=== PATIENT | male | born 1930 | race Caucasian/White ===

== ENCOUNTER 2016-05-22 16:58 | Inpatient (IN) | payer BC ==
--- NOTE | ~2016-05-22 | CN ---
Consultation Report [address] [place]. [address] NAME: DANIELDEONDRE : 32 STATUS : ADM Asad PAT#: [id number] AGE: 85 ADM/REG DATE : 05/22/16 MR#: [id number] REPORT SERV DATE: 05/23/16 DICTATED BY: LYNDON JAIME DATE: 05/23/16 REPORT STATUS : Draft TRANSCRIBED BY: MODL DATE: 05/23/16 DATE OF CONSULTATION: 05/23/2016 HISTORY OF PRESENT ILLNESS: This is an 85-year-old white male admitted with pancytopenia, white count of 1000, platelet count 69,000, hemoglobin 6.2. He has been transfused. Hemoglobin is still only 6.9 after two units. History of dementia, past history of ETOH abuse, nicotine, none recently, history of hypertension, diabetes mellitus, status post appendectomy and a sigmoid resection for diverticular disease. No GI complaints, only occasional right upper quadrant discomfort. No gross bleeding. Did have positive guaiac in the ER. Did have some ataxia and a fall while he was drinking back in 2007, and had trauma. SOCIAL HISTORY: As outlined above. FAMILY HISTORY: Negative for colon cancer. PHYSICAL EXAMINATION: GENERAL: Pleasantly demented white male, alert. HEENT: Anicteric. NECK: Negative. CHEST: Clear to percussion. HEART: Regular rate and rhythm without murmur or gallop. ABDOMEN: Soft, nontender. Bowel sounds active. NEUROLOGIC: Pertinent for his dementia. ASSESSMENT AND PLAN: 1. Pancytopenia. 2. Positive guaiac stool. 3. Diabetes mellitus. 4. Hypertension. 5. Dementia. SUGGESTION: We will consult [facility] regarding the pancytopenia. Further evaluation will be based on their findings. Dr. Zuñiga is implementation coordinator this weekend. Thank you very much for consultation. EVERARDO/TORO Lyndon Jaime M.D. / [id number] Consultation Report [address] [place]. [address] NAME: DEONDRE SANCHEZ : 32 STATUS : ADM Asad PAT#: [id number] AGE: 85 ADM/REG DATE : 05/22/16 MR#: [id number] REPORT SERV DATE: 05/23/16 DICTATED BY: LYNDON JAIME DATE: 05/23/16 REPORT STATUS : Draft TRANSCRIBED BY: TORO DATE: 05/23/16 CC: London Lau M.D.
--- NOTE | ~2016-05-22 | HP ---
History And Physical [facility] [address] [place]. [address] NAME: DEONDRE SANCHEZ : 32 STATUS : ADM Asad PAT#: [id number] AGE: 85 ADM/REG DATE : 05/22/16 MR#: [id number] REPORT SERV DATE: 05/23/16 DICTATED BY: LIANET EVANS DATE: 05/23/16 REPORT STATUS : Draft TRANSCRIBED BY: MODL DATE: 05/23/16 DATE OF ADMISSION: 05/22/2016 CHIEF COMPLAINT: Abnormal labs. HISTORY OF PRESENT ILLNESS: The patient is an 85 years old male who is a resident of the [facility] with a history of Alzheimer's dementia, who had an abnormal lab study which revealed the patient with low WBC, low H and H, and low platelet. Therefore patient was sent to [facility] ER for further evaluation. The patient with Alzheimer's dementia. A family member who is stepdaughter at the bedside, but did not know much of patient history. Most information obtained from reviewing medical record that is limited in the chart and unable to obtain medical records from [facility]. Some information was obtained from reviewing the ER notes from yesterday's evaluation. ALLERGIES: THE PATIENT WITH ALLERGIES TO IODINATED CONTRAST MEDIA, PRAVASTATIN, CLOPIDOGREL FROM PLAVIX. MEDICATION: Home medications to include: 1. Aspirin which was discontinued. 2. Cymbalta 60 mg daily. 3. Lisinopril 20 mg daily. 4. Lovastatin 40 mg at bedtime. 5. Namenda XR 20 mg cap daily. 6. Metformin 500 mg tablet at breakfast and supper which was discontinued. 7. Lyrica 50 mg at bedtime. 8. Seroquel 100 mg at bedtime. 9. Exelon 9.5 mg patch daily. 10.Senokot 2 tabs p.o. at bedtime which was discontinued. PAST MEDICAL HISTORY: To include: 1. Alzheimer's dementia. 2. Shingle with right-side post herpetic neuropathy. 3. Hypertension. 4. Diabetes. 5. History of anxiety and depression. PAST SURGICAL HISTORY: Appendectomy. SOCIAL HISTORY: The patient is a resident of the [facility] for approximately over one year. The patient with history of tobacco and alcohol use. The patient has two children who are involved with his care. FAMILY HISTORY: Noncontributory. History And Physical [address] [address] NAME: DEONDRE SANCHEZ : 32 STATUS : ADM Asad PAT#: [id number] AGE: 85 ADM/REG DATE : 05/22/16 MR#: [id number] REPORT SERV DATE: 05/23/16 DICTATED BY: LIANET EVANS DATE: 05/23/16 REPORT STATUS : Draft TRANSCRIBED BY: TORO DATE: 05/23/16 REVIEW OF SYSTEMS: Patient denies any problem with his eyes. He denies any problem hearing or swallowing. The patient denies any complaint of chest pain. Patient with history of hypertension. The patient with history of smoking, but denies any cough and does not use oxygen. The patient reports some slight nausea, but none at this time. The patient complain of abdominal pain to the right abdomen that extends to his right side. The patient denies any problem urinating. The patient denies any complaint of pain in his knees or hands. The patient with no history of seizures or stroke. He has had a fall which patient had hit his head with an intracranial hemorrhage, but did not have history of surgery, but did have traumatic brain injury from it. The patient with history of shingles. Patient with history of dementia and some anxiety and depression. The patient with history of type 2 diabetes and he is on aspirin. VITAL SIGNS: The patient with 98.1 temperature, pulse 73, respiratory rate 18, blood pressure 97/54, sat O2 of 93% on room air. Weight of 62.36 kilos, BMI of 20.3. LABORATORY STUDIES: On 05/22/2016 revealed WBC of 1.0 hemoglobin is 6.3, hematocrit of 19.4, post 1 unit blood transfusion hemoglobin went up to 7.8 and hematocrit 23.4. Sodium 141, potassium 4.2, chloride 102, CO2 of 25, BUN 14, creatinine of 0.94, glucose of 114, and GFR of 75. AST 12, bilirubin 0.4, total protein 7, ALT 10, albumin 3.7, and alkaline phosphate of 93. A.m. labs on 05/23/2016 with WBC of 0.9, hemoglobin of 6.9, hematocrit 20.1, platelet of 52. Sodium of 144, potassium 3.8, chloride 109 CO2 of 26, BUN of 17, creatinine 0.85, glucose of 117, and GFR of 81. AST 8, bilirubin 0.8, total protein 6.1, and ALT 8, albumin 3.2, and alkaline phosphate of 79. Urinalysis on 05/23/2016 was negative. Chest x- ray on 05/22/2016 was negative. Abdominal pelvis scan on 05/22/2016 showed no acute GI or obstruction. There is some evidence for coronary artery disease. There is a gallstone, prostate enlarged, however, appears to be contained within the capsule, incidental spondylo lithiasis L5-S1 and arthrosclerotic changes noted. PHYSICAL EXAMINATION: GENERAL: The patient is a pleasant elderly male, in no acute distress. HEENT: Normocephalic atraumatic, PERRLA, pale sclera and conjunctiva bilaterally. NECK: No pain. BREASTS: Noted symmetrical chest expansion. CVS: Regular rate and rhythm. Normal S1, S2. No murmurs noted. LUNGS: Clear to auscultation bilaterally. No wheezing. ABDOMEN: Noted mild tenderness to palpation in the right upper quadrant, but no guarding. Positive bowel sounds x4 quadrants and soft nontender except the right upper quadrant. : Diaper in use. RECTAL: Not assessed. EXTREMITY: No edema noted in bilateral upper and lower extremity. MUSCULOSKELETAL: Noted generalized arthritic changes throughout. SKIN: Multiple old ecchymoses on bilateral upper extremities and lower extremity, dry skin. Noted old dermatomal scar on the right abdomen extending to the left flank likely this is secondary to history of shingles. NEURO: No acute deficit noted. PSYCH: The patient is pleasantly demented. History And Physical [address] [address] NAME: DEONDRE SANCHEZ : 32 STATUS : ADM Asad PAT#: [id number] AGE: 85 ADM/REG DATE : 05/22/16 MR#: [id number] REPORT SERV DATE: 05/23/16 DICTATED BY: LIANET EVANS DATE: 05/23/16 REPORT STATUS : Draft TRANSCRIBED BY: TORO DATE: 05/23/16 IMPRESSION: 1. Pancytopenia questionable etiology. 2. Nick positive. 3. Alzheimer's dementia. 4. Type 2 diabetes with neuropathy. 5. Hypertension, essential. 6. Anxiety disorder. 7. Post herpetic neuralgia in right abdomen extended to the right flank consistent with history of shingle. 8. Hyperlipidemia. PLAN: 1. The patient is afebrile. We discussed with Dr. Tristan and agreed with Oncology consult regarding the patient's pancytopenia. The patient currently has negative urinalysis, negative chest x-ray. We will hold off on any antibiotics. The patient with abdominal CT scan. No obvious source of infection. The patient is at risk for infection. 2. We will continue Accu-Chek q.a.c. and at bedtime. The patient currently cleared by GI for clear liquid for in case the patient will need to be scoped. 3. The patient with severe anemia likely at this time secondary to possible GI bleed. He will be receiving total of 3 units of packed red blood cells. We will obtain a hemoglobin and hematocrit post transfusion and then continue q.6 hours. The patient is at risk for worsening anemia, acute coronary syndrome. Aspirin is held for now. We will need to place the patient on PPI. 4. The patient with hypertension, BP is slightly labile, but more in the low 100s. We will continue to monitor. We will continue home med regimen with hold parameter. The patient is at risk for further low BP. 5. We will place the patient on fall aspiration given the patient's current dementia state as well as with anxiety, the patient is at risk for fall. 6. We will continue Accu-Chek for now hold the metformin and place the patient on a sliding scale level one insulin. The patient is at risk for DKA. 7. We will continue Cymbalta and Lyrica for patient's neuropathic pain. Continue Alzheimer's treatment with Namenda and Exelon. Also continue Seroquel for the patient's anxiety and agitation. 8. We will need to refer patient to Case Management once medical condition is stable or would plan to return back to the [facility]. 9. Discussed plan of care with the patient's stepdaughter, reviewed post form with daughter on phone. Request if this can be discussed with her brother prior to making final decision. The patient is currently on full code. DICTATED BY: Fabiola Greco NP CLP/MODL Lianet History And Physical [address] [address] NAME: DEONDRE SANCHEZ : 32 STATUS : ADM Asad PAT#: [id number] AGE: 85 ADM/REG DATE : 05/22/16 MR#: [id number] REPORT SERV DATE: 05/23/16 DICTATED BY: LIANET EVANS DATE: 05/23/16 REPORT STATUS : Draft TRANSCRIBED BY: MODL DATE: 05/23/16 London Evans / [id number] CC: London Lau M.D.
--- NOTE | ~2016-05-22 | CN ---
Consultation Report [facility] [address] [place]. [address] NAME: DEONDRE SANCHEZ : 32 STATUS : ADM Asad PAT#: [id number] AGE: 85 ADM/REG DATE : 05/22/16 MR#: [id number] REPORT SERV DATE: 05/24/16 DICTATED BY: MARTI GUY DATE: 05/23/16 REPORT STATUS : Draft TRANSCRIBED BY: MODL DATE: 05/23/16 HEMATOLOGY/ONCOLOGY CONSULT DATE OF CONSULTATION: REASON FOR CONSULTATION: Pancytopenia. HISTORY OF PRESENT ILLNESS: The patient is a very pleasant 85-year-old white male with past medical history significant for dementia, hypertension, hyperlipidemia, post herpetic neuralgia, and diabetes. He is a resident at a custodial. He was admitted to [facility] with low blood counts. Stools were noted to be heme-positive. There was no history of melena or hematochezia. Unfortunately, due to his dementia, the patient is unable to give me a history tonight. He is somewhat confused. He denies pain or nausea. He denies fever or chills. PAST MEDICAL HISTORY: 1. Dementia. 2. Hypertension. 3. Hyperlipidemia. 4. Post herpetic neuralgia. 5. Diabetes. ALLERGIES: FROM THE CHART, PLAVIX AND CONTRAST MEDIA. MEDICATIONS: Current medications include hydralazine, Exelon patch, Prinivil, Cymbalta, insulin, Seroquel, Lyrica, Namenda, Mevacor, electrolyte sliding scale, and p.r.n. medications for pain. FAMILY HISTORY: Notable for COPD. SOCIAL HISTORY: Per the chart, history of alcohol in the past. Also per chart, history of smoking in the past. REVIEW OF SYSTEMS: Eleven system review of systems is unable to be performed due the patient's dementia. However, on my interview, he denies any symptoms. PHYSICAL EXAMINATION: VITAL SIGNS: Temperature 36.9 Celsius, pulse 69, respirations 18, blood pressure 113/57. GENERAL: Very pleasant elderly white male in no acute distress. HEAD: Normocephalic and atraumatic. EYES: No scleral icterus. Extraocular movements intact. EARS, NOSE, THROAT: No thrush. Consultation Report [facility] [address] [place]. [address] NAME: DEONDRE SANCHEZ : 32 STATUS : ADM Asad PAT#: [id number] AGE: 85 ADM/REG DATE : 05/22/16 MR#: [id number] REPORT SERV DATE: 05/24/16 DICTATED BY: MARTI GUY DATE: 05/23/16 REPORT STATUS : Draft TRANSCRIBED BY: MODRadha DATE: 05/23/16 LYMPH NODE SURVEY: No palpable neck, supraclavicular, or axillary lymphadenopathy. PULMONARY: Clear to auscultation bilaterally without wheezing. CARDIAC: Regular rate and rhythm without murmurs. ABDOMEN: Soft, nontender, and nondistended without organomegaly. Bowel sounds are present. EXTREMITIES: A note is made of exceedingly dry skin in both lower extremities, with some peeling. Extremities are warm. No petechiae or purpura rather. NEUROLOGIC: The patient is moving all extremities. He was somewhat confused. Further exam was unable to be performed. PSYCHIATRIC: See above. Unable to provide history. Altered mental status. LABORATORY STUDIES: CBC: White count 0.7, hemoglobin 5.3, MCV greater than 100, platelets 64. This is from 05/22/2016. The patient was subsequently transfused, and hemoglobin tonight was 10.1. Chemistries, 05/22/2016: Creatinine 0.94, liver function tests unremarkable. Peripheral smear: I personally examined the peripheral smear tonight. It is notable for decrease overall in white blood cells without circulating blasts. Red cells were notable for macrocytosis, anisocytosis, rare fragmented RBCs, and teardrop forms. Polychromasia was also present. Platelets were normal in appearance but subjectively decreased. CT scan: Notable for no lymphadenopathy and no hepatosplenomegaly. ASSESSMENT AND PLAN: This is a very nice 85-year-old gentleman with underlying dementia who presents with severe pancytopenia. I agree with transfusion as you have done. The differential diagnosis here includes medication (Seroquel), metabolic causes (nutritional deficiency such as B12 or folic acid), or bone marrow disease such as myelodysplastic syndrome or malignancy. I am very worried about the latter. I have recommended that we check a B12, folic acid, LDH, and serum protein electrophoresis. I would also recommend that if possible, we will hold the patient's Seroquel. Atypical antipsychotics have been associated with agranulocytosis, neutropenia, and bone marrow suppression. I think the decision here will be if he fails to improve, would we continue to support him or would we move forward with a bone marrow biopsy. Given his dementia and other comorbid illnesses, observation and supportive care might be a very reasonable choice. Unfortunately, no family was here tonight. I will attempt to contact them. Thank you very much for this consult. Consultation Report [address] [place]. [address] NAME: DEONDRE SANCHEZ : 32 STATUS : ADM Asad PAT#: [id number] AGE: 85 ADM/REG DATE : 05/22/16 MR#: [id number] REPORT SERV DATE: 05/24/16 DICTATED BY: MARTI GUY. DATE: 05/23/16 REPORT STATUS : Draft TRANSCRIBED BY: TORO DATE: 05/23/16 [facility]/TORO Marti Guy M.D. / [id number] CC: London Lau M.D.
--- NOTE | ~2016-05-22 | DS ---
Discharge Summary [facility] [address] [facility] [place]. [address] NAME: DEONDRE SANCHEZ : 32 STATUS : DIS IN PAT#: [id number] AGE: 85 ADM/REG DATE : 05/22/16 MR#: [id number] REPORT SERV DATE: 06/06/16 DICTATED BY: RICHIE JADE DATE: 06/05/16 REPORT STATUS : Draft TRANSCRIBED BY: MODRadha DATE: 06/05/16 Data Collection from hospitalization DISCHARGE DIAGNOSES: 1. 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 2. Heme-positive stool. 3. Type 2 diabetes mellitus with neuropathy. 4. Hypertension - primary. 5. Severe dementia. 6. Neutropenic fever. 7. History of shingles with right-sided postherpetic neuropathy. 8. Anxiety and depression. 9. Former tobacco use. CONSULTATIONS: 1. Chema Tristan M.D. 2. Les Gilbert M.D. PROCEDURES PERFORMED: CT scan of the abdomen and pelvis without contrast on 05/22/2016. MEDICATIONS: Vitamin B12 1000 mcg IM daily, vitamin B12 1000 mcg IM every seven days, Senokot two tablets at bedtime, Cymbalta 60 mg daily, folic acid 1 mg daily, Mevacor 40 mg at bedtime, Namenda XR 28 mg daily, Lyrica 50 mg at bedtime, Protonix 40 mg before breakfast and supper, Seroquel 100 mg at bedtime, Exelon 9.5 mg topically daily, Glucophage 500 mg with breakfast and supper, and lisinopril 10 mg - hold for systolic blood pressure less than 110. CONDITION ON DISCHARGE: Stable. DISPOSITION: The patient was discharged to the [facility] on an 1800- calorie diabetic diet with activities as instructed. He would follow up with Dr. Rodrigez at the end of the following week. HOSPITAL COURSE: This is an 85-year-old man who is a resident at the [facility]. He has a history of Alzheimer's dementia. He was to have abnormal lab studies, which revealed a low white blood cell count, low H and H, and low platelets. The patient was sent to the [facility] Emergency Room for further evaluation. The patient has Alzheimer's dementia. His pancytopenia was felt to be of questionable etiology. He was found to have severe anemia. He was admitted to the hospital at this time for further evaluation and treatment. Upon admission, urinalysis was negative. He was going to be transfused 3 units of packed red blood cells. Aspirin was held for now. Home blood pressure medications would be continued with hold parameters. Cymbalta and Lyrica were continued as well as Namenda and Exelon. Sliding scale insulin level 1 was begun. The patient was seen in consultation by Dr. Chema Tristan. He had no GI complaints at this time other than occasional right upper quadrant discomfort. He had no gross bleeding. He did have a positive guaiac study in the Discharge Summary [place] [id number] [facility]. [address] NAME: DEONDRE SANCHEZ : 32 STATUS : DIS IN PAT#: [id number] AGE: 85 ADM/REG DATE : 05/22/16 MR#: [id number] REPORT SERV DATE: 06/06/16 DICTATED BY: RICHIE JADE DATE: 06/05/16 REPORT STATUS : Draft TRANSCRIBED BY: TORO DATE: 06/05/16 emergency room. He has pancytopenia and [facility] was going to be consulted. The patient was seen by Dr. Les Gilbert regarding pancytopenia. His stools were found to be Heme-positive. There was no history of melena or hematochezia. The patient was somewhat confused. White count was 0.7. A peripheral smear was performed and examined. It was notable for decreased overall white blood cells without circulating blasts, red cells were notable for macrocytosis, anisocytosis, rear fragmented red blood cells, and teardrop form polychromasia was also present. Platelets were normal in appearance, but subjectively decreased. He agreed with the transfusion as had been performed. The differential diagnosis included medication, metabolic causes, or bone marrow disease such as myelodysplastic syndrome or malignancy. B12, folic acid, LDH, and serum protein electrophoresis would be checked. If possible, we would hold the patient's Seroquel. On 05/24/2016, he still had confusion. He had no complaints of pain. He did have a fever and was started on antibiotics. Cefepime was begun. B12 and folate level was decreased, this would be repleted. The patient's family was considering DNR code status. The next day, he had no new complaints. He was eating. His T-max was 100.8. He had been found to have severe B12 and folate deficiency. Blood culture and urinalysis were going to be obtained. He was still very confused. On 05/26/2016, he was doing okay. He was in no distress. White blood cell count was 1.3. Pancytopenia was improving. Blood cultures were negative. Creatinine level had increased to 1.36. ANC was increasing. Platelets were stable. He is not a candidate for treatment for myelodysplastic syndrome. There was no santo to do a bone marrow biopsy. Occupational Therapy evaluated the patient as well as Physical Therapy. Discharge planning was performed. He denied any complaints of pain. On 05/28/2016, he was in no distress. He denied any pain. Discharge instructions were given. Due to his improved and stable condition, he was discharged to the [facility] with the above-stated instructions. Information collected by: Arabella Guzman I submit the above information as my discharge summary. TG/AMTHEWL Richie Jade M.D. / [id number] CC: London Lau M.D. Derek W Holland, M.D. David Collins, M.D. [facility]
[2016-05-22 13:58] LABS: MEAN CORPUS HGB CONC 31.2 g/dL (32.0-36.0); RBC DISTRIBUTION WIDTH 18.5 % (12.0-16.0)
[2016-05-22 14:06] LABS: HEMOGLOBIN 5.3 g/dL (13.6-17.8); RED CELL COUNT 1.47 10/6/uL (4.7-6.1); WHITE BLOOD CELLS 0.7 10/3/uL (4.5-10.5)
[2016-05-22 14:07] LABS: MEAN CORPUSCULAR HEMOGLOB 36.1 pg (26.0-34.0); MEAN CORPUSCULAR VOLUME 115.6 fL (80-100); PLATELET COUNT 64 10/3/uL (150-400)
[2016-05-22 14:08] LABS: MANUAL DIFF YES %
[2016-05-22 14:27] LABS: A/G RATIO 1.1 (0.7-1.9); ALBUMIN 3.5 G/DL (3.5-5.0); ALKALINE PHOSPHATASE 87 U/L (45-117); BUN (BLOOD UREA NITROGEN) 12 MG/DL (6-23); CALCIUM, SERUM 8.7 MG/DL (8.5-10.4); CHLORIDE, SERUM 109 MMOL/L (96-112); CO2 (CARBON DIOXIDE) 26 MMOL/L (24-34); CREATININE 0.96 MG/DL (0.70-1.30); GFR AFRICAN AMERICAN 84 ML/MIN (>=60); GFR NON AFRICAN AMERICAN 73 ML/MIN (>=60); GLOBULIN 3.2 G/DL (2.5-4.1); GLUCOSE, SERUM 166 MG/DL (60-99); POTASSIUM, SERUM 4.2 MMOL/L (3.5-5.3); SGOT(AST) 12 U/L (5-40); SGPT(ALT) 13 U/L (5-65); SODIUM, SERUM 144 MMOL/L (135-148); TOTAL BILIRUBIN 0.5 MG/DL (0-1.2); TOTAL PROTEIN 6.7 G/DL (6.0-8.5)
[2016-05-22 14:34] LABS: ANISOCYTOSIS 1+ (5-10/OIF) (0-5/OIF); LYMPHOCYTES 76 %; MONOCYTES 4 %; SEGMENTED NEUTROPHIL (0) 20 %
[2016-05-22 14:35] LABS: OVALOCYTES 1+ (3-10/OIF) (0-2/OIF); PLATELET ESTIMATE DEC (ADEQUATE)
[2016-05-22 16:29] LABS: BASOPHILS 0 %; EOSINOPHILS 0 %; LYMPHOCYTES 78.8 %; LYMPHOCYTES ABSOLUTE 0.82 10/3/uL (0.67-4.30); MEAN PLATELET VOLUME 10.7 fL (9.2-13.0); MONOCYTES 1.9 %; MONOCYTES ABSOLUTE 0.02 10/3/uL (0.21-1.20); NEUTROPHILS 19.3 %; PLATELET COUNT 69 10/3/uL (150-400); RBC DISTRIBUTION WIDTH 18.8 % (12.0-16.0); RED CELL COUNT 1.72 10/6/uL (4.7-6.1)
[2016-05-22 16:30] LABS: ER CBC TAT 0 Hrs 05 Mins; HEMOGLOBIN 6.2 g/dL (13.6-17.8)
[2016-05-22 16:31] LABS: HEMATOCRIT 18.8 % (40.0-51.0); MEAN CORPUSCULAR VOLUME 109.3 fL (80-100)
[2016-05-22 16:32] LABS: MANUAL DIFF NO %
[2016-05-22 16:48] LABS: A/G RATIO 1.1 (0.7-1.9); ALBUMIN 3.7 G/DL (3.5-5.0); ALKALINE PHOSPHATASE 93 U/L (45-117); BUN (BLOOD UREA NITROGEN) 14 MG/DL (6-23); CALCIUM, SERUM 8.8 MG/DL (8.5-10.4); CHLORIDE, SERUM 107 MMOL/L (96-112); CO2 (CARBON DIOXIDE) 25 MMOL/L (24-34); CREATININE 0.94 MG/DL (0.70-1.30); GFR AFRICAN AMERICAN 87 ML/MIN (>=60); GFR NON AFRICAN AMERICAN 75 ML/MIN (>=60); GLOBULIN 3.3 G/DL (2.5-4.1); POTASSIUM, SERUM 4.2 MMOL/L (3.5-5.3); SGOT(AST) 12 U/L (5-40); SGPT(ALT) 10 U/L (5-65); SODIUM, SERUM 141 MMOL/L (135-148); TOTAL BILIRUBIN 0.4 MG/DL (0-1.2)
[2016-05-22 16:50] LABS: GLUCOSE, SERUM 114 MG/DL (60-99)
[2016-05-22 17:02] LABS: ER DIFF TAT 0 Hrs 37 Mins; LYMPHOCYTES 77 %; LYMPHOCYTES ABSOLUTE (CALC) 0.77 10/3/uL (0.67-4.30); MONOCYTES 4 %; MONOCYTES ABSOLUTE (CALC) 0.04 10/3/uL (0.21-1.20); NEUTROPHILS ABSOLUTE (CALC) 0.19 10/3/uL (2.02-8.40); SEGMENTED NEUTROPHIL (0) 19 %; TOTAL NUCLEATED CELLS 100
[2016-05-22 17:07] LABS: ANISOCYTOSIS 1+ (5-10/OIF) (0-5/OIF); MACROCYTES 1+ (5-10/OIF) (0-5/OIF); PLATELET ESTIMATE DEC (ADEQUATE)
[2016-05-22 17:08] LABS: TEARDROP SHAPED RBCS OCC (0-2/OIF)
[2016-05-22 19:31] LABS: CHOL/HDL RATIO(NOT ORDER) 2.1 (0-5); HDL CHOLESTEROL 40 MG/DL (> 39); LDL CHOLESTEROL 22 MG/DL (< 130); NON-HDL CHOLESTEROL 42 MG/DL (< 160); TRIGLYCERIDE 100 MG/DL (< 150)
[2016-05-22 19:32] LABS: CHOLESTEROL 82 MG/DL (< 200)
[2016-05-22] MEDS ORDERED: HALF81 PO (20:27)
[2016-05-22] MEDS ORDERED: PRIN20 PO (20:28)
[2016-05-22] MEDS ORDERED: CYMBALTA60 PO (20:28)
[2016-05-22] MEDS ORDERED: MEVACOR40 MG PO (20:28)
[2016-05-22] MEDS ORDERED: LYRICA50 PO (20:28)
[2016-05-22] MEDS ORDERED: GLUCPH PO (20:28)
[2016-05-22] MEDS ORDERED: NAMENXR28 PO (20:29)
[2016-05-22] MEDS ORDERED: EXELON9.5T TOP (20:29)
[2016-05-22] MEDS ORDERED: SEROQUEL1C PO (20:29)
[2016-05-22] MEDS ORDERED: SENTAB PO (20:30)
[2016-05-22 20:49] LABS: PROTIME (NOT ORD) 13.3 SEC (12.0-14.5)
[2016-05-22 20:50] LABS: PARTIAL THROMBO TIME 39.7 SEC (22.5-37.2)
[2016-05-22 23:12] LABS: HEMATOCRIT 23.4 % (40.0-51.0); HEMOGLOBIN 7.8 g/dL (13.6-17.8)
[2016-05-23 05:38] LABS: HEMATOCRIT 19.4 % (40.0-51.0); HEMOGLOBIN 6.3 g/dL (13.6-17.8)
[2016-05-23 06:52] LABS: A/G RATIO 1.1 (0.7-1.9); ALBUMIN 3.2 G/DL (3.5-5.0); BUN (BLOOD UREA NITROGEN) 17 MG/DL (6-23); CALCIUM, SERUM 8.5 MG/DL (8.5-10.4); CHLORIDE, SERUM 109 MMOL/L (96-112); CO2 (CARBON DIOXIDE) 26 MMOL/L (24-34); CREATININE 0.85 MG/DL (0.70-1.30); GFR AFRICAN AMERICAN 93 ML/MIN (>=60); GFR NON AFRICAN AMERICAN 81 ML/MIN (>=60); GLOBULIN 2.9 G/DL (2.5-4.1); GLUCOSE, SERUM 117 MG/DL (60-99); PHOSPHORUS, SERUM 3.3 MG/DL (2.5-4.5); POTASSIUM, SERUM 3.8 MMOL/L (3.5-5.3); SGOT(AST) 8 U/L (5-40); SGPT(ALT) 8 U/L (5-65); SODIUM, SERUM 144 MMOL/L (135-148); TOTAL BILIRUBIN 0.8 MG/DL (0-1.2); TOTAL PROTEIN 6.1 G/DL (6.0-8.5)
[2016-05-23 06:56] LABS: ALKALINE PHOSPHATASE 79 U/L (45-117)
[2016-05-23 07:29] LABS: MEAN CORPUS HGB CONC 33.2 g/dL (32.0-36.0); MEAN CORPUSCULAR HEMOGLOB 32.8 pg (26.0-34.0); MEAN PLATELET VOLUME 9.4 fL (9.2-13.0); PLATELET COUNT 52 10/3/uL (150-400); RED CELL COUNT 1.92 10/6/uL (4.7-6.1)
[2016-05-23 07:30] LABS: MANUAL DIFF YES %; WHITE BLOOD CELLS 0.9 10/3/uL (4.5-10.5)
[2016-05-23 07:54] LABS: LYMPHOCYTES 80 %; LYMPHOCYTES ABSOLUTE (CALC) 0.72 10/3/uL (0.67-4.30); NEUTROPHILS ABSOLUTE (CALC) 0.18 10/3/uL (2.02-8.40); OVALOCYTES 1+ (3-10/OIF) (0-2/OIF); PLATELET ESTIMATE DEC (ADEQUATE); POIKILOCYTOSIS 1+ (5-10/OIF) (0-5/OIF); POLYCHROMASIA 1+ (2-5/OIF) (0-1/OIF); SEGMENTED NEUTROPHIL (0) 20 %; TOTAL NUCLEATED CELLS 50
[2016-05-23 10:14] LABS: HEMATOCRIT 20.1 % (40.0-51.0); HEMOGLOBIN 6.9 g/dL (13.6-17.8)
[2016-05-23 11:01] LABS: ASCORBIC ACID (UR NOT ORDER) NEG (NEG); BILIRUBIN, URINE NEGATIVE (NEG); KETONE, URINE NEGATIVE (NEG); LEUKOCYTE ESTERASE(NOT OR TRACE (NEG); WBC (NOT ORDERED) (RFLEX) 4 (0-5)
[2016-05-23 18:47] LABS: HEMATOCRIT 29.8 % (40.0-51.0); HEMOGLOBIN 10.1 g/dL (13.6-17.8)
[2016-05-23 21:02] LABS: HEMATOCRIT 29.3 % (40.0-51.0); HEMOGLOBIN 9.9 g/dL (13.6-17.8)
[2016-05-24 07:51] LABS: HEMATOCRIT 29.4 % (40.0-51.0); HEMOGLOBIN 9.9 g/dL (13.6-17.8); MEAN CORPUS HGB CONC 33.7 g/dL (32.0-36.0); MEAN CORPUSCULAR HEMOGLOB 31.7 pg (26.0-34.0); MEAN PLATELET VOLUME 8.9 fL (9.2-13.0)
[2016-05-24 07:54] LABS: T PROTEIN (ELECT)(NOT OR 6.5 G/DL (6.0-8.5)
[2016-05-24 08:10] LABS: MEAN CORPUSCULAR VOLUME 94.2 fL (80-100); PLATELET COUNT 43 10/3/uL (150-400); RBC DISTRIBUTION WIDTH 22.8 % (12.0-16.0); RED CELL COUNT 3.12 10/6/uL (4.7-6.1)
[2016-05-24 08:14] LABS: MANUAL DIFF YES %
[2016-05-24 08:16] LABS: BUN (BLOOD UREA NITROGEN) 15 MG/DL (6-23); CALCIUM, SERUM 8.5 MG/DL (8.5-10.4); CHLORIDE, SERUM 105 MMOL/L (96-112); CO2 (CARBON DIOXIDE) 25 MMOL/L (24-34); CREATININE 0.92 MG/DL (0.70-1.30); FOLATE 3.9 NG/ML (>5.2); GFR AFRICAN AMERICAN 89 ML/MIN (>=60); GFR NON AFRICAN AMERICAN 77 ML/MIN (>=60); GLUCOSE, SERUM 149 MG/DL (60-99); SODIUM, SERUM 140 MMOL/L (135-148)
[2016-05-24 08:36] LABS: LYMPHOCYTES 58 %; LYMPHOCYTES ABSOLUTE (CALC) 0.58 10/3/uL (0.67-4.30); MONOCYTES 3 %; MONOCYTES ABSOLUTE (CALC) 0.03 10/3/uL (0.21-1.20); NEUTROPHILS ABSOLUTE (CALC) 0.39 10/3/uL (2.02-8.40); SEGMENTED NEUTROPHIL (0) 39 %; TOTAL NUCLEATED CELLS 100
[2016-05-24 22:39] LABS: ASCORBIC ACID (UR NOT ORDER) NEG (NEG); BILIRUBIN, URINE NEGATIVE (NEG); KETONE, URINE NEGATIVE (NEG); LEUKOCYTE ESTERASE(NOT OR TRACE (NEG); WBC (NOT ORDERED) (RFLEX) 4 (0-5)
[2016-05-25 07:06] LABS: HEMATOCRIT 29.3 % (40.0-51.0); HEMOGLOBIN 9.9 g/dL (13.6-17.8); MEAN CORPUS HGB CONC 33.8 g/dL (32.0-36.0); MEAN CORPUSCULAR HEMOGLOB 32.4 pg (26.0-34.0); MEAN CORPUSCULAR VOLUME 95.8 fL (80-100); RBC DISTRIBUTION WIDTH 22.2 % (12.0-16.0); RED CELL COUNT 3.06 10/6/uL (4.7-6.1)
[2016-05-25 07:15] LABS: MANUAL DIFF YES %; PLATELET COUNT 40 10/3/uL (150-400); WHITE BLOOD CELLS 1.2 10/3/uL (4.5-10.5)
[2016-05-25 07:17] LABS: BUN (BLOOD UREA NITROGEN) 12 MG/DL (6-23); CALCIUM, SERUM 7.6 MG/DL (8.5-10.4); CHLORIDE, SERUM 105 MMOL/L (96-112); CO2 (CARBON DIOXIDE) 21 MMOL/L (24-34); CREATININE 1.36 MG/DL (0.70-1.30); GFR AFRICAN AMERICAN 55 ML/MIN (>=60); GFR NON AFRICAN AMERICAN 48 ML/MIN (>=60); POTASSIUM, SERUM 3.3 MMOL/L (3.5-5.3)
[2016-05-25 07:27] LABS: SODIUM, SERUM 132 MMOL/L (135-148)
[2016-05-25 07:37] LABS: GLUCOSE, SERUM 453 MG/DL (60-99)
[2016-05-25 07:59] LABS: ANISOCYTOSIS 1+ (5-10/OIF) (0-5/OIF); LYMPHOCYTES 48 %; LYMPHOCYTES ABSOLUTE (CALC) 0.58 10/3/uL (0.67-4.30); MONOCYTES 6 %; MONOCYTES ABSOLUTE (CALC) 0.07 10/3/uL (0.21-1.20); NEUTROPHILS ABSOLUTE (CALC) 0.55 10/3/uL (2.02-8.40); SEGMENTED NEUTROPHIL (0) 46 %; TOTAL NUCLEATED CELLS 100
[2016-05-26 06:24] LABS: HEMATOCRIT 27.7 % (40.0-51.0); HEMOGLOBIN 9.1 g/dL (13.6-17.8); MEAN CORPUS HGB CONC 32.9 g/dL (32.0-36.0); MEAN CORPUSCULAR HEMOGLOB 31.5 pg (26.0-34.0); MEAN CORPUSCULAR VOLUME 95.8 fL (80-100); MEAN PLATELET VOLUME 10.3 fL (9.2-13.0); RBC DISTRIBUTION WIDTH 21.4 % (12.0-16.0); RED CELL COUNT 2.89 10/6/uL (4.7-6.1)
[2016-05-26 06:25] LABS: PLATELET COUNT 49 10/3/uL (150-400); WHITE BLOOD CELLS 1.3 10/3/uL (4.5-10.5)
[2016-05-26 06:26] LABS: MANUAL DIFF YES %
[2016-05-26 07:44] LABS: BAND NEUTROPHILS 2 %; LYMPHOCYTES 57 %; LYMPHOCYTES ABSOLUTE (CALC) 0.74 10/3/uL (0.67-4.30); MONOCYTES 4 %; MONOCYTES ABSOLUTE (CALC) 0.05 10/3/uL (0.21-1.20); NEUTROPHILS ABSOLUTE (CALC) 0.51 10/3/uL (2.02-8.40); SEGMENTED NEUTROPHIL (0) 37 %; TOTAL NUCLEATED CELLS 100
[2016-05-26 07:45] LABS: ANISOCYTOSIS 1+ (5-10/OIF) (0-5/OIF)
[2016-05-26 10:03] LABS: A/G 1.71 RATIO (0.9-2.10); ALB RELATIVE % 63.1 % (60.0-89.0); ALPHA 1 (ELECTRO) 0.25 GM/DL (0.1-0.4); ALPHA 1 RELAT % (NOT ORD) 3.8 % (1.0-4.0); ALPHA 2 (ELECTRO) 0.51 GM/DL (0.5-1.10); ALPHA 2 RELAT % 7.9 % (4.5-26.0); BETA GLOBULIN (SPE) 0.78 GM/DL (0.60-1.30); GAMMA GLOBULIN (SPE) 0.86 G/DL (0.70-1.60); GAMMA RELAT % 13.2 % (6.0-22.0)
[2016-05-27 05:31] LABS: HEMOGLOBIN 8.3 g/dL (13.6-17.8); MEAN CORPUS HGB CONC 33.5 g/dL (32.0-36.0); MEAN CORPUSCULAR VOLUME 95.8 fL (80-100); MEAN PLATELET VOLUME 10.2 fL (9.2-13.0); RED CELL COUNT 2.59 10/6/uL (4.7-6.1)
[2016-05-27 05:32] LABS: HEMATOCRIT 24.8 % (40.0-51.0); PLATELET COUNT 46 10/3/uL (150-400); WHITE BLOOD CELLS 1.1 10/3/uL (4.5-10.5)
[2016-05-27 05:33] LABS: MANUAL DIFF YES %
[2016-05-27 05:41] LABS: BUN (BLOOD UREA NITROGEN) 11 MG/DL (6-23); CHLORIDE, SERUM 107 MMOL/L (96-112); CO2 (CARBON DIOXIDE) 25 MMOL/L (24-34); CREATININE 0.91 MG/DL (0.70-1.30); GFR AFRICAN AMERICAN 90 ML/MIN (>=60); GFR NON AFRICAN AMERICAN 78 ML/MIN (>=60); POTASSIUM, SERUM 3.7 MMOL/L (3.5-5.3)
[2016-05-27 05:43] LABS: GLUCOSE, SERUM 116 MG/DL (60-99); SODIUM, SERUM 140 MMOL/L (135-148)
[2016-05-27 06:19] LABS: BAND NEUTROPHILS 1 %; EOSINOPHILS 1 %; EOSINOPHILS ABSOLUTE (CALC) 0.01 10/3/uL (0.0-0.53); LYMPHOCYTES 49 %; LYMPHOCYTES ABSOLUTE (CALC) 0.54 10/3/uL (0.67-4.30); MONOCYTES 2 %; MONOCYTES ABSOLUTE (CALC) 0.02 10/3/uL (0.21-1.20); NEUTROPHILS ABSOLUTE (CALC) 0.53 10/3/uL (2.02-8.40); SEGMENTED NEUTROPHIL (0) 47 %; TOTAL NUCLEATED CELLS 100
[2016-05-27 06:21] LABS: ANISOCYTOSIS 1+ (5-10/OIF) (0-5/OIF); PLATELET ESTIMATE DEC (ADEQUATE)
[2016-05-28 07:06] LABS: HEMATOCRIT 23.5 % (40.0-51.0); MEAN CORPUSCULAR HEMOGLOB 32.5 pg (26.0-34.0); MEAN CORPUSCULAR VOLUME 95.5 fL (80-100); MEAN PLATELET VOLUME 9.8 fL (9.2-13.0); PLATELET COUNT 51 10/3/uL (150-400); RBC DISTRIBUTION WIDTH 20.7 % (12.0-16.0); RED CELL COUNT 2.46 10/6/uL (4.7-6.1)
[2016-05-28 07:08] LABS: MANUAL DIFF YES %; WHITE BLOOD CELLS 0.8 10/3/uL (4.5-10.5)
[2016-05-28 07:46] LABS: ANISOCYTOSIS 1+ (5-10/OIF) (0-5/OIF); LYMPHOCYTES 65 %; LYMPHOCYTES ABSOLUTE (CALC) 0.52 10/3/uL (0.67-4.30); MONOCYTES 2 %; MONOCYTES ABSOLUTE (CALC) 0.02 10/3/uL (0.21-1.20); NEUTROPHILS ABSOLUTE (CALC) 0.26 10/3/uL (2.02-8.40); PLATELET ESTIMATE DEC (ADEQUATE); SEGMENTED NEUTROPHIL (0) 33 %; TOTAL NUCLEATED CELLS 100
[2016-05-28] MEDS ORDERED: FOLIC PO (11:27)
[2016-05-28] MEDS ORDERED: PROTONIX PO (11:28)
[2016-05-28] MEDS ORDERED: B121000P IM (11:32)
== END 2016-05-28 13:49 | disposition home or self-care (01) | DRG 809 ==
LOC: ER 16:58 → 2SO 21:14
PROVIDERS: Emergency Medicine; Family Medicine; Internal Medicine; Internal Medicine Hematology & Oncology; Nurse Practitioner; Nurse Practitioner Family; Physician Assistant
PROC: 30233N1 Transfusion of Nonautologous Red Blood Cells into Peripheral Vein, Percutaneous Approach (ICD-10-PCS; principal; 2016-05-22)
DX: D61.818 Other pancytopenia (principal); N17.9 Acute kidney failure, unspecified; E11.42 Type 2 diabetes mellitus with diabetic polyneuropathy; E11.22 Type 2 diabetes mellitus with diabetic chronic kidney disease; D70.9 Neutropenia, unspecified; D62 Acute posthemorrhagic anemia; B02.29 Other postherpetic nervous system involvement; K50.10 Crohn's disease of large intestine without complications; G70.00 Myasthenia gravis without (acute) exacerbation; R50.81 Fever presenting with conditions classified elsewhere; N18.3 Chronic kidney disease, stage 3 (moderate); J20.9 Acute bronchitis, unspecified; E53.8 Deficiency of other specified B group vitamins; E03.9 Hypothyroidism, unspecified; E78.5 Hyperlipidemia, unspecified; F10.21 Alcohol dependence, in remission; I12.9 Hypertensive chronic kidney disease with stage 1 through stage 4 chronic kidney disease, or unspecified chronic kidney disease; I25.10 Atherosclerotic heart disease of native coronary artery without angina pectoris; E87.6 Hypokalemia; Z88.8 Allergy status to other drugs, medicaments and biological substances; Z95.5 Presence of coronary angioplasty implant and graft; Z86.73 Personal history of transient ischemic attack (TIA), and cerebral infarction without residual deficits; Z91.041 Radiographic dye allergy status; T80.89XA Other complications following infusion, transfusion and therapeutic injection, initial encounter; Y82.8 Other medical devices associated with adverse incidents
CPT/HCPCS: 36415; 71010; 74176; 80048; 80053; 80061; 81001; 82306; 82525; 82607; 82746; 82962; 83036; 83605; 83615; 83735; 84100; 84155; 84156; 84165; 84443; 84999; 85014; 85018; 85025; 85610; 85730; 86850; 86900; 86901; 86920; 87040; 97162-GP; 97165-GO; 99285; A9270-GY; J0360; J0692; J1940; P9016

== ENCOUNTER 2016-07-11 21:05 | Observation (INO) | payer BC ==
--- NOTE | ~2016-07-11 | DS ---
Discharge Summary [id number] [place]. [address] NAME: DEONDRE SANCHEZ : 34 STATUS : DIS Asad PAT#: [id number] AGE: 85 ADM/REG DATE : 07/11/16 MR#: [id number] REPORT SERV DATE: 07/14/16 DICTATED BY: RICHIE JADE DATE: 07/12/16 REPORT STATUS : Draft TRANSCRIBED BY: MODL DATE: 07/12/16 ADMISSION DATE: 07/11/2016 DISCHARGE DATE: 07/12/2016 Admission history, physical, and discharge combined for 23-hour observation. CHIEF COMPLAINT: This is an 85-year-old gentleman who presents from the [facility], with profound anemia. HISTORY OF PRESENT ILLNESS: He was getting weaker and on routine blood work was found to have a hemoglobin level of 6 and was sent to the emergency room. REVIEW OF SYSTEMS: Weight has been stable. Behavior has been somewhat more aggressive recently, probably exacerbated by lack of blood flow due to the anemia. No recent nausea, vomiting, diarrhea, cough, fever, or trauma. PAST MEDICAL HISTORY: Type 2 diabetes, shingles, pancytopenia and/or myelodysplastic syndrome, Alzheimer's dementia. SOCIAL HISTORY: Single with grown children. Retired. Nonsmoker, nondrinker. Living in [facility]. FAMILY HISTORY: Noncontributory. CURRENT MEDICATIONS: Include B12 1 mg weekly IM, Cymbalta 60 mg daily, folate 1 mg daily, Mevacor 40 mg at bedtime, Namenda XR 28 mg daily, Glucophage 500 mg b.i.d., Protonix 40 mg b.i.d., Lyrica 50 mg at bedtime, Seroquel 25 mg at bedtime, Exelon 9.5 mg patch daily, Senokot tabs at bedtime. ALLERGIES: PRAVACHOL, PLAVIX, IODINE, UNKNOWN TYPES OF REACTIONS. CODE STATUS: Unclear. PHYSICAL EXAMINATION: VITAL SIGNS: BP 101/52, temp 97.1, pulse 73, respirations 18, O2 saturation 100% on room air. GENERAL: He is alert, oriented to person, only somewhat agitated, but not aggressive. SKIN: Very pale. Warm and dry. No lesions. HEAD AND NECK: Cranial nerves grossly intact. Nose and throat patent. Mucous membranes moist. Neck is supple. No mass. No JVD. CHEST: Clear. No wheezes. HEART: Regular rate and rhythm. No murmur. ABDOMEN: Supple. Nontender, nondistended. AND RECTAL: Deferred. EXTREMITIES: Good range of motion. No breakdown or edema. Discharge Summary [address] [place]. [address] NAME: DEONDRE SANCHEZ : 34 STATUS : DIS Asad PAT#: [id number] AGE: 85 ADM/REG DATE : 07/11/16 MR#: [id number] REPORT SERV DATE: 07/14/16 DICTATED BY: RICHIE JADE DATE: 07/12/16 REPORT STATUS : Draft TRANSCRIBED BY: MODL DATE: 07/12/16 LABORATORY: WBC 1.2, H and H 7.3 and 21.8, platelets 62. Electrolytes in normal range. Glucose 128. Hemoglobin earlier in the day 6.0 with hematocrit 19.2 and WBC 0.8. IMPRESSION: 1. Profound anemia. 2. Pancytopenia with history of myelodysplastic syndrome. 3. Diabetes type 2. 4. History of shingles. 5. Significant dementia. PLAN: Transfusion of 2 units packed red blood cells. Follow H and H, and plan to return to assisted living when stable, and follow up as scheduled with Dr. Rodrigez for followup of the myelodysplasia. DICTATED BY: London Lau/TORO Richie Jade M.D. / [id number] CC: London Lau M.D. IN [facility]
[2016-07-11 17:42] LABS: MEAN CORPUS HGB CONC 31.3 g/dL (32.0-36.0); MEAN CORPUSCULAR HEMOGLOB 32.1 pg (26.0-34.0); MEAN CORPUSCULAR VOLUME 102.7 fL (80-100); MEAN PLATELET VOLUME 10.6 fL (9.2-13.0); PLATELET COUNT 64 10/3/uL (150-400); RBC DISTRIBUTION WIDTH 22.7 % (12.0-16.0)
[2016-07-11 17:44] LABS: HEMATOCRIT 19.2 % (40.0-51.0); RED CELL COUNT 1.87 10/6/uL (4.7-6.1); WHITE BLOOD CELLS 0.8 10/3/uL (4.5-10.5)
[2016-07-11 17:53] LABS: MANUAL DIFF YES %
[2016-07-11 18:07] LABS: BLASTS 2 % (0); EOSINOPHILS 2 %; EOSINOPHILS ABSOLUTE (CALC) 0.02 10/3/uL (0.0-0.53); LYMPHOCYTES 68 %; LYMPHOCYTES ABSOLUTE (CALC) 0.54 10/3/uL (0.67-4.30); MONOCYTES 4 %; MONOCYTES ABSOLUTE (CALC) 0.03 10/3/uL (0.21-1.20); NEUTROPHILS ABSOLUTE (CALC) 0.19 10/3/uL (2.02-8.40); PLATELET ESTIMATE DEC (ADEQUATE); SEGMENTED NEUTROPHIL (0) 24 %; TOTAL NUCLEATED CELLS 100
[2016-07-11 18:08] LABS: OVALOCYTES 1+ (3-10/OIF) (0-2/OIF)
[2016-07-11 18:09] LABS: POLYCHROMASIA 1+ (2-5/OIF) (0-1/OIF); TARGET CELLS OCC (1-2/OIF) (0-1/OIF)
[2016-07-11 21:01] LABS: BASOPHILS 0 %; EOSINOPHILS 0.8 %; EOSINOPHILS ABSOLUTE 0.01 10/3/uL (0.0-0.53); LYMPHOCYTES 73.7 %; LYMPHOCYTES ABSOLUTE 0.87 10/3/uL (0.67-4.30); MEAN CORPUSCULAR HEMOGLOB 33.2 pg (26.0-34.0); MEAN PLATELET VOLUME 10.4 fL (9.2-13.0); MONOCYTES 1.7 %; MONOCYTES ABSOLUTE 0.02 10/3/uL (0.21-1.20); NEUTROPHILS 23.8 %; NEUTROPHILS ABSOLUTE 0.28 10/3/uL (2.02-8.40); PLATELET COUNT 62 10/3/uL (150-400)
[2016-07-11 21:02] LABS: ER CBC TAT 0 Hrs 05 Mins; HEMATOCRIT 21.8 % (40.0-51.0); HEMOGLOBIN 7.3 g/dL (13.6-17.8); MEAN CORPUS HGB CONC 33.5 g/dL (32.0-36.0); MEAN CORPUSCULAR VOLUME 99.1 fL (80-100); WHITE BLOOD CELLS 1.2 10/3/uL (4.5-10.5)
[2016-07-11 21:05] LABS: MANUAL DIFF NO %
[~2016-07-11 21:05] MED LIST: B121000P IM; CYMBALTA60 PO; EXELON9.5T TOP; FOLIC PO; GLUCPH PO; HALF81 PO; LYRICA50 PO; MEVACOR40 MG PO; NAMENXR28 PO; PRIN20 PO; PROTONIX PO; SENTAB PO; SEROQUEL1C PO
[2016-07-11 21:09] LABS: PROTIME (NOT ORD) 13.5 SEC (12.0-14.5)
[2016-07-11 21:10] LABS: PARTIAL THROMBO TIME 43.9 SEC (22.5-37.2)
[2016-07-11 21:18] LABS: ALBUMIN 3.7 G/DL (3.5-5.0); BUN (BLOOD UREA NITROGEN) 11 MG/DL (6-23); CALCIUM, SERUM 8.7 MG/DL (8.5-10.4); CHLORIDE, SERUM 104 MMOL/L (96-112); CO2 (CARBON DIOXIDE) 24 MMOL/L (24-34); CREATININE 1.23 MG/DL (0.70-1.30); GFR AFRICAN AMERICAN 63 ML/MIN (>=60); GFR NON AFRICAN AMERICAN 54 ML/MIN (>=60); GLUCOSE, SERUM 128 MG/DL (60-99); SGOT(AST) 9 U/L (5-40); SGPT(ALT) 12 U/L (5-65); SODIUM, SERUM 138 MMOL/L (135-148); TOTAL BILIRUBIN 0.5 MG/DL (0-1.2); TOTAL PROTEIN 8.1 G/DL (6.0-8.5)
[2016-07-11 21:19] LABS: A/G RATIO 0.8 (0.7-1.9); ALKALINE PHOSPHATASE 112 U/L (45-117); GLOBULIN 4.4 G/DL (2.5-4.1)
[2016-07-11] MEDS ORDERED: B121000P IM (21:50)
[2016-07-11] MEDS ORDERED: CYMBALTA60 PO (21:50)
[2016-07-11] MEDS ORDERED: FOLIC PO (21:50)
[2016-07-11] MEDS ORDERED: LYRICA50 PO (21:51)
[2016-07-11] MEDS ORDERED: EXELON9.5T TOP (21:51)
[2016-07-11] MEDS ORDERED: GLUCPH PO (21:51)
[2016-07-11] MEDS ORDERED: MEVACOR40 MG PO (21:51)
[2016-07-11] MEDS ORDERED: NAMENXR28 PO (21:51)
[2016-07-11] MEDS ORDERED: PROTONIX PO (21:52)
[2016-07-11] MEDS ORDERED: SENTAB PO (21:52)
[2016-07-11] MEDS ORDERED: SEROQUEL25 PO (21:52)
[2016-07-11 22:02] LABS: EOSINOPHILS 6 %; EOSINOPHILS ABSOLUTE (CALC) 0.07 10/3/uL (0.0-0.53); ER DIFF TAT 1 Hrs 05 Mins; LYMPHOCYTES 64 %; LYMPHOCYTES ABSOLUTE (CALC) 0.77 10/3/uL (0.67-4.30); MONOCYTES 4 %; MONOCYTES ABSOLUTE (CALC) 0.05 10/3/uL (0.21-1.20); NEUTROPHILS ABSOLUTE (CALC) 0.31 10/3/uL (2.02-8.40); SEGMENTED NEUTROPHIL (0) 26 %; TOTAL NUCLEATED CELLS 50
[2016-07-11 22:03] LABS: OVALOCYTES 1+ (3-10/OIF) (0-2/OIF); PLATELET ESTIMATE DEC (ADEQUATE)
[2016-07-12 14:21] LABS: HEMATOCRIT 26.6 % (40.0-51.0); HEMOGLOBIN 9.1 g/dL (13.6-17.8)
== END 2016-07-12 17:05 | disposition home or self-care (01) ==
LOC: ER 21:05 → 5SO 21:29
PROVIDERS: Emergency Medicine; Family Medicine; Internal Medicine Hematology & Oncology
DX: D64.9 Anemia, unspecified (principal); E11.9 Type 2 diabetes mellitus without complications; D61.818 Other pancytopenia; D46.9 Myelodysplastic syndrome, unspecified; G30.9 Alzheimer's disease, unspecified; F02.80 Dementia in other diseases classified elsewhere, unspecified severity, without behavioral disturbance, psychotic disturbance, mood disturbance, and anxiety; Z86.19 Personal history of other infectious and parasitic diseases; Z88.8 Allergy status to other drugs, medicaments and biological substances; Z91.09 Other allergy status, other than to drugs and biological substances; Z79.84 Long term (current) use of oral hypoglycemic drugs; Z79.899 Other long term (current) drug therapy
CPT/HCPCS: 36415; 36430; 80053; 85014; 85018; 85025; 85610; 85730; 86850; 86900; 86901; 86920; 96374; 99285; A9270-GY; G0378; J1630; P9016